=== PATIENT | male | born 1990 | race Caucasian/White ===

== ENCOUNTER 2016-10-27 19:25 | Emergency (ER) | payer MEDICAID ==
[~2016-10-27] VITALS: Ht 188 cm; Wt 126.0 kg
[2016-10-27 19:27] VITALS: BP 134/77; PULSE 118; RESP 18; TEMP 99.7; O2SAT 95
[2016-10-27] MEDS ORDERED: ALBU6.7H INH (20:38)
[2016-10-27] MEDS ORDERED: ZITH500T PO (20:38)
--- NOTE | 2016-10-27 20:44 | PD ---
HPI Chief Complaint: Cold / Flu Symptoms Time Seen by Provider: 20:39 Travel History International Travel<30 days: No Contact w/Intl Traveler<30days: No Traveled to known affect area: No History of Present Illness HPI 26-year-old white male presents emergency department for evaluation of cough and congestion 2 weeks. He states that he has had flulike symptoms which has included subjective fever and chills, headache, ear pain, sore throat, cough, brown sputum production, wheezing, posttussive emesis, myalgias, arthralgias and general malaise. He denies any abdominal pain. No diarrhea. He states that he is actually constipated. No urinary symptoms. Symptoms are moderate. PFSH Past Medical History Medical History: Denies Significant Hx Tetanus Vaccination: < 5 Years Past Surgical History Narrative Surgical Bilateral ankle surgery with fusion Social History Alcohol Use: No Tobacco Use: No Substance Use: No Allergies-Medications (Allergen,Severity, Reaction): Coded Allergies: No Known Allergies (Unverified , 10/27/16) Reported Meds & Prescriptions Reported Meds & Active Scripts Active Zithromax (Azithromycin) 500 Mg Tab 500 Mg PO DAILY Proventil Hfa 6.7 GM Inh (Albuterol Sulfate) 90 Mcg/Act Aer 2 Puff INH Q4-6H PRN Review of Systems Except as stated in HPI: all other systems reviewed are Neg Physical Exam Narrative GENERAL: Well-developed, well-nourished in no acute distress. Nontoxic appearing. HEAD: Normocephalic, atraumatic. EYES: Pupils equal round and reactive. Extraocular motions intact. No scleral icterus. No injection or drainage. ENT: TMs clear without erythema. The external auditory canals clear. Nose: clear . Posterior pharynx is erythematous and moist. No tonsillar edema or exudate. Uvula midline. Airway patent. NECK: Trachea midline.Supple, nontender, moves head freely. No central bony tenderness or spasm. CARDIOVASCULAR: Regular mildly tachycardic rate and rhythm without murmurs, gallops, or rubs. RESPIRATORY: Few scattered rhonchi with some slight Rales in the right base. No wheezing. Speaks in full and complete sentences. GASTROINTESTINAL: Abdomen soft, non-tender, nondistended. No hepato-splenomegaly , or palpable masses. No guarding. EXTREMITIES: No clubbing, cyanosis, or edema. No joint tenderness, effusion, or edema noted. BACK: Nontender without deformity or crepitance. No flank tenderness. Data Data Last Documented VS Vital Signs Date Time Temp Pulse Resp B/P Pulse Ox O2 Delivery O2 Flow Rate FiO2 10/27/16 19:27 99.7 118 18 134/77 95 Room Air Orders Ceftriaxone Inj (Rocephin Inj) (10/27/16 20:45) Azithromycin (Zithromax) (10/27/16 20:45) MDM Medical Decision Making Medical Screen Exam Complete: Yes Emergency Medical Condition: Yes Medical Record Reviewed: Yes Differential Diagnosis MDM: High Differential diagnoses: Pneumonia, bronchitis, URI, asthma, RAD, legionnaire's disease, SARS, ARDS, influenza, bronchiolitis, RSV,PE,CHF Narrative Course Patient is resting comfortable in examination room. He does not appear to be toxic. The patient has cough and congestion and a few Rales in the right base. I suspect this is probably an early developing pneumonia. The patient will be given Rocephin 1 g IM, Zithromax 500 mg by mouth. This is right lower lobe pneumonia Diagnosis Primary Impression: Right lower lobe pneumonia Patient Instructions: General Instructions Departure Forms: Work Release Special Instructions: No work 2 days. Additional Instructions: Rest. Increase fluids. Robitussin-DM. Proventil. Zithromax. Tylenol and Advil. Recheck with her primary care doctor in the next 2 days. Return to the ER for any problems. Med/Other Pt SpecificInfo: Prescription(s) given Scripts Azithromycin (Zithromax)500 Mg Lyh220 Mg PO DAILY #7 TAB Prov:Brenden Mccarty MD 10/27/16 Albuterol 6.7 GM Inh (Proventil Hfa 6.7 GM Inh)90 Mcg/Act Aer2 Puff INH Q4-6H PRN (SHORTNESS OF BREATH) #1 INHALER Prov:Brenden Mccarty MD 10/27/16 Disposition: 01 DISCHARGE HOME Condition: Stable Parish Pennington Oct 27, 2016 20:44
[2016-10-27] MEDS ORDERED: AZITHROMYCIN 250 MG TAB PO ONE (20:45)
== END 2016-10-27 21:44 | disposition home or self-care (01) ==
LOC: NEPB 19:25
DX: J18.9 Pneumonia, unspecified organism (principal)
CPT/HCPCS: 96372; 99283; J0696

== ENCOUNTER 2017-06-23 20:19 | Emergency (ER) | payer MEDICAID, OTHER ==
[~2017-06-23 20:19] MED LIST: ALBU6.7H INH; ZITH500T PO
[2017-06-23 21:02] VITALS: BP 148/83; PULSE 105; RESP 20; O2SAT 97
--- NOTE | 2017-06-23 21:42 | PD ---
HPI Chief Complaint: Musculoskeletal Complaint Time Seen by Provider: 21:30 Travel History International Travel<30 days: No Contact w/Intl Traveler<30days: No Traveled to known affect area: No History of Present Illness HPI 26-year-old male presents to the emergency room for evaluation of foreign body sensation to the bottom of his foot for the past several hours. Patient states he was barefoot in his garage when he felt a sharp sensation to the bottom of his foot that radiated into his ankle. He felt the foot with his hand and did not feel any foreign bodies. Patient has history of bilateral ankle surgeries with hardware and thought that maybe he injured his foot and that a screw was poking through the bottom of his skin. Denies paresthesias history of diabetes. PFSH Past Medical History Arthritis: Yes Diminished Hearing: No Tetanus Vaccination: < 5 Years Influenza Vaccination: No ?: Not Past Surgical History Other Surgery: Yes (BILAT ANKLE SURGERIES) Social History Alcohol Use: No Tobacco Use: No Substance Use: No Allergies-Medications (Allergen,Severity, Reaction): Coded Allergies: No Known Allergies (Unverified , 10/27/16) Reported Meds & Prescriptions Reported Meds & Active Scripts Active Review of Systems Except as stated in HPI: all other systems reviewed are Neg Physical Exam Narrative GENERAL: Well-nourished, well-developed male in no acute distress. Afebrile. Ambulatory. SKIN: Focused skin assessment warm/dry. There is a sharp spike-like foreign body protruding from the right plantar foot around the heel. HEAD: Normocephalic. EYES: No scleral icterus. No injection or drainage. NECK: Supple, trachea midline. No JVD or lymphadenopathy. CARDIOVASCULAR: Regular rate and rhythm without murmurs, gallops, or rubs. RESPIRATORY: Breath sounds equal bilaterally. No accessory muscle use. PSYCHIATRIC: No delusional thought processes. No hallucinations. Data Data Last Documented VS Vital Signs Date Time Temp Pulse Resp B/P (MAP) Pulse Ox O2 Delivery O2 Flow Rate FiO2 06/23/17 21:02 105 20 148/83 (104) 97 MDM Medical Decision Making Medical Screen Exam Complete: Yes Emergency Medical Condition: Yes Medical Record Reviewed: Yes Differential Diagnosis Foreign body, hardware malfunction, sprain, strain, fracture Narrative Course 26-year-old female presents to the emergency room for evaluation of sharp stabbing pain to his right plantar foot that started just prior to arrival. Patient was standing barefoot in his garage when he first felt the pain. He ran his hand across his foot but did not feel any foreign body. States it felt like maybe his hardware was poking through the bottom of his foot. Pain only occurs when he walks on it. Physical exam reveals a 3 mm Sharp, spike-like foreign body to the right plantar foot near the heel. Foreign body was removed with tweezers. Patient reports 100% improvement in symptoms. Patient discharged with wound care instructions and told to follow up with a primary care physician or return for worsening symptoms. He understands and agrees to plan. Diagnosis Primary Impression: Foreign body in soft tissue Referrals: Primary Care Physician Additional Instructions: keep wound clean and dry. Apply triple antibiotic ointment daily. Follow-up with primary care physician as needed. Return for worsening symptoms. Med/Other Pt SpecificInfo: Prescription(s) given Disposition: 01 DISCHARGE HOME Condition: Stable Tanya Humphreys Jun 23, 2017 21:42
== END 2017-06-23 21:55 | disposition home or self-care (01) ==
LOC: PHEFT 20:19
DX: S90.851A Superficial foreign body, right foot, initial encounter (principal); W26.9XXA Contact with unspecified sharp object(s), initial encounter
CPT/HCPCS: 28190

== ENCOUNTER 2017-09-05 18:45 | Emergency (ER) | payer OTHER ==
[~2017-09-05] VITALS: Ht 185.4 cm; Wt 127.4 kg
[2017-09-05 18:52] VITALS: BP 132/82; PULSE 67; RESP 16; TEMP 98.5; O2SAT 98
[2017-09-05] MEDS ORDERED: TYLE325T PO (19:46)
--- NOTE | 2017-09-05 20:01 | PD ---
HPI Chief Complaint: GI Complaint Time Seen by Provider: 20:00 Travel History International Travel<30 days: No Contact w/Intl Traveler<30days: No Traveled to known affect area: No History of Present Illness HPI 27-year-old male came to the emergency room with history of vomiting and diarrhea that has been there for 1 week. Patient says that it was getting better and then today it started again. Patient has had nonstop diarrhea for 4 hours. He has some associated abdominal cramps just before he has to move his bowels. It's watery and nonbloody. Currently the diarrhea is worse than the vomiting. There is positive sick contacts in the form of his sister and nephew who has same symptoms. No history of fever or chills. Patient says he feels quite dehydrated. No history of dizziness and lightheadedness. But he just feels weak. He is otherwise a healthy person. Vital signs are otherwise stable. PFSH Past Medical History Narrative Medical List of his past medical, surgical, social and family history is reviewed from the nursing note. Arthritis: Yes (SINCE ) Diminished Hearing: No Respiratory: Yes (PNEUMONIA LAST WINTER) Tetanus Vaccination: Unknown Influenza Vaccination: No Past Surgical History Other Surgery: Yes (BILAT ANKLE RECONSTRUCTION SURGERIES) Social History Alcohol Use: Yes (SOCIALLY) Tobacco Use: No Substance Use: No Allergies-Medications (Allergen,Severity, Reaction): Coded Allergies: No Known Allergies (Unverified Adverse Reaction, Unknown, 09/05/17) Comments No known drug allergies. Reported Meds & Prescriptions Reported Meds & Active Scripts Active Lomotil (Diphenoxylate-Atropine) 2.5-0.025 Mg Tab 1 Tab PO Q6H PRN Reported Tylenol (Acetaminophen) 325 Mg Tab 650 Mg PO Q6H PRN Narrative Medication List of his home medications reviewed from the nursing note. Review of Systems Except as stated in HPI: all other systems reviewed are Neg Gastrointestinal: Positive: Diarrhea Physical Exam Narrative GENERAL: Awake, alert, obese, moderate distress SKIN: Focused skin assessment warm/dry. HEAD: Atraumatic. Normocephalic. EYES: Pupils equal and round. No scleral icterus. No injection or drainage. ENT: No nasal bleeding or discharge. Dry mucous membrane. NECK: Trachea midline. No JVD. CARDIOVASCULAR: Regular rate and rhythm. No murmur appreciated. RESPIRATORY: No accessory muscle use. Clear to auscultation. Breath sounds equal bilaterally. GASTROINTESTINAL: Abdomen soft, non-tender, nondistended. Hepatic and splenic margins not palpable. MUSCULOSKELETAL: No obvious deformities. No clubbing. No cyanosis. No edema. NEUROLOGICAL: Awake and alert. No obvious cranial nerve deficits. Motor grossly within normal limits. Normal speech. PSYCHIATRIC: Appropriate mood and affect; insight and judgment normal. Data Data Last Documented VS Orders Orders Basic Metabolic Panel (Bmp) (09/05/17 20:06) Complete Blood Count With Diff (09/05/17 20:06) Urinalysis - C+S If Indicated (09/05/17 20:06) Iv Access Insert/Monitor (09/05/17 20:06) Ecg Monitoring (09/05/17 20:) Oximetry (09/05/17 20:06) Ondansetron Inj (Zofran Inj) (09/05/17 20:15) Sodium Chlor 0.9% 1000 Ml Inj (Ns 1000 M (09/05/17 20:06) Sodium Chloride 0.9% Flush (Ns Flush) (09/05/17 20:15) Sodium Chlor 0.9% 1000 Ml Inj (Ns 1000 M (09/05/17 20:15) Enteric Path (Stool) (09/05/17 20:06) C Diff Toxin Pcr (09/05/17 20:06) Diphenoxylate/Atropine Tab (Lomotil Tab) (09/05/17 22:00) Ed Discharge Order (09/05/17 22:10) Labs Laboratory Tests Test 09/05/17 20:00 09/05/17 20:35 09/05/17 21:10 White Blood Count 9.8 TH/MM3 Red Blood Count 5.55 MIL/MM3 Hemoglobin 16.0 GM/DL Hematocrit 46.5 % Mean Corpuscular Volume 83.8 FL Mean Corpuscular Hemoglobin 28.8 PG Mean Corpuscular Hemoglobin Concent 34.4 % Red Cell Distribution Width 12.4 % Platelet Count 237 TH/MM3 Mean Platelet Volume 9.1 FL Neutrophils (%) (Auto) 70.1 % Lymphocytes (%) (Auto) 20.6 % Monocytes (%) (Auto) 7.1 % Eosinophils (%) (Auto) 1.4 % Basophils (%) (Auto) 0.8 % Neutrophils # (Auto) 6.9 TH/MM3 Lymphocytes # (Auto) 2.0 TH/MM3 Monocytes # (Auto) 0.7 TH/MM3 Eosinophils # (Auto) 0.1 TH/MM3 Basophils # (Auto) 0.1 TH/MM3 CBC Comment DIFF FINAL Differential Comment Urine Color YELLOW Urine Turbidity CLEAR Urine pH 5.5 Urine Specific Geary 1.023 Urine Protein NEG mg/dL Urine Glucose (UA) NEG mg/dL Urine Ketones NEG mg/dL Urine Occult Blood SMALL Urine Nitrite NEG Urine Bilirubin NEG Urine Leukocyte Esterase NEG Urine Squamous Epithelial Cells 0-5 /hpf Microscopic Urinalysis Comment CULT NOT INDICATED Stool C. difficile Toxin (PCR) NEGATIVE Stl C. difficile Toxin Epiderm 027 PRESUMPTIVE NEGATIVE Blood Urea Nitrogen 12 MG/DL Creatinine 0.83 MG/DL Random Glucose 93 MG/DL Calcium Level 8.6 MG/DL Sodium Level 137 MEQ/L Potassium Level 4.1 MEQ/L Chloride Level 106 MEQ/L Carbon Dioxide Level 21.5 MEQ/L Anion Gap 10 MEQ/L Estimat Glomerular Filtration Rate 110 ML/MIN [facility] Medical Decision Making Medical Screen Exam Complete: Yes Emergency Medical Condition: Yes Medical Record Reviewed: Yes Differential Diagnosis Viral gastroenteritis, dehydration, electrolyte abnormality, C. difficile colitis Narrative Course 8:31 PM awaiting for the blood test result. Patient is getting 2 L of IV fluid bolus. If the CBC is within normal limit I will give him Lomotil. 10:08 PM have given the patient 1 dose of Lomotil. CBC and chemistry are within normal limit. UA is within normal limit. Patient did have a stool sample that was sent for C. difficile. Status so pending. I'm comfortable discharging the patient home at this point. Procedures EKG Prior to Arrival: No Diagnosis Primary Impression: Acute gastroenteritis Additional Impression: Dehydration Referrals: Primary Care Physician 2 days Additional Instructions: Take the medication as per the prescription direction. Eat Bridger diet which includes banana, rice, applesauce, toast and tea. Return to the ER if the condition worsens or any other new concerns. Med/Other Pt SpecificInfo: Prescription(s) given Scripts Diphenoxylate-Atropine (Lomotil) 2.5-0.025 Mg Tab 1 TAB PO Q6H Y for DIARRHEA, #10 TAB 0 Refills Prov: Leo Waters MD 09/05/17 Disposition: 01 DISCHARGE HOME Condition: Stable Leo Waters MD Sep 05, 2017 20:01
[2017-09-05] MEDS ORDERED: SODIUM CHLOR 0.9% 1000 ML INJ 1,000 ML IV SCH (20:06)
[2017-09-05] MEDS ORDERED: ONDANSETRON HCL 4 MG/2 ML VIAL IVP ONE (20:15)
[2017-09-05] MEDS ORDERED: SODIUM CHLORIDE 0.9% FLUSH 10 ML FLUSH IV FLUSH PRN (20:15)
[2017-09-05] MEDS ORDERED: SODIUM CHLOR 0.9% 1000 ML INJ 1,000 ML IV ONE (20:15)
[2017-09-05 20:57] LABS: BLOOD, URINE SMALL (NEG); GLUCOSE,URINE NEG (NEG); KETONE, URINE NEG (NEG); NITRITE,URINE NEG (NEG); PH, URINE 5.5 (5.0-8.5)
[2017-09-05 20:58] LABS: AUTOMATED NEUTROPHIL # 6.9 TH/MM3 (1.8-7.7); BASOPHIL # 0.1 TH/MM3 (0-0.2); BASOPHIL % 0.8 % (0.0-2.0); EOSINOPHIL # 0.1 TH/MM3 (0-0.4); EOSINOPHIL % 1.4 % (0.0-4.0); HEMATOCRIT 46.5 % (39.0-51.0); LYMPH % 20.6 % (9.0-44.0); MEAN CELL VOLUME 83.8 FL (80.0-100.0); MEAN CORPUSCULAR HEMOGLOBIN 28.8 PG (27.0-34.0); MEAN CORPUSCULAR HGB CONC 34.4 % (32.0-36.0); MONO % 7.1 % (0.0-8.0); NEUT % 70.1 % (16.0-70.0); PLATELET COUNT 237 TH/MM3 (150-450); RED BLOOD COUNT 5.55 MIL/MM3 (4.50-5.90); RED CELL DISTRIBUTION WIDTH 12.4 % (11.6-17.2); WHITE BLOOD COUNT 9.8 TH/MM3 (4.0-11.0)
[2017-09-05 21:15] VITALS: BP 134/83; PULSE 68; RESP 16; O2SAT 97
[2017-09-05 21:20] LABS: HEMO FLAGS DIFF FINAL
[2017-09-05 21:31] LABS: POTASSIUM 4.1 MEQ/L (3.5-5.1)
[2017-09-05 21:34] LABS: URINE COLOR YELLOW (YELLW/STRAW)
[2017-09-05 21:35] LABS: BICARBONATE 21.5 MEQ/L (21.0-32.0)
[2017-09-05 21:35] LABS: COMMENT (UR) CULT NOT INDICATED; CULTURE IF INDICATED CULT NOT INDICATED; SQUAMOUS EPITHELIAL CELL URINE 0-5 /hpf (0-5)
[2017-09-05 21:45] VITALS: BP 134/72; PULSE 76; RESP 20
[2017-09-05] MEDS ORDERED: DIPHENOXYLATE/ATROPINE 2.5 MG/0.025 MG TAB PO ONE (22:00)
[2017-09-05] MEDS ORDERED: LOMO2.5T PO (22:09)
[2017-09-05 22:37] VITALS: BP 130/78
[2017-09-06 03:23] LABS: C. DIFF EPI 027 PRESUMPTIVE NEGATIVE (NEGATIVE)
== END 2017-09-05 22:37 | disposition home or self-care (01) ==
LOC: PHED 18:45
DX: K52.9 Noninfective gastroenteritis and colitis, unspecified (principal); E86.0 Dehydration
CPT/HCPCS: 80048; 81001; 85025; 87493; 87506; 96361; 96374; 99284; J2405; J7030